=== PATIENT | female | born 1970 | race Asian ===

== ENCOUNTER 2017-08-05 22:37 | Emergency (ER) | payer OTHER ==
[~2017-08-05] VITALS: Ht 154.9 cm; Wt 95.1 kg
[2017-08-05] MEDS ORDERED: LIDOCAINE-MPF 1%, 5ML INFIL ONE (23:00)
[2017-08-05] MEDS ORDERED: ONDANSETRON ODT 4 MG PO ONE (23:00)
[2017-08-05] MEDS ORDERED: ONDANSETRON ODT 4 MG ONE (23:02)
[2017-08-05] MEDS ORDERED: PROMETHAZINE 25 MG/ML, 1ML ONE (23:42)
[2017-08-05 23:46] LABS: BASOPHILS % (AUTO) 0 % (0-1); EOSINOPHILS # (AUTO) 0.01 x10^3/uL (0-0.4); EOSINOPHILS % (AUTO) 0 % (1-7); LYMPHOCYTES % (AUTO) 10 % (22-44); MD NO; MEAN CORPUSCULAR HEMOGLOBIN 21.1 pg (27.0-34.8); MEAN CORPUSCULAR HGB CONC 31.1 g/dL (32.4-35.8); MEAN CORPUSCULAR VOLUME 67.9 fL (80-100); MEAN PLATELET VOLUME 8.8 fL (7.4-10.4); MONOCYTES # (AUTO) 0.34 x10^3/uL (0.2-0.8); MONOCYTES % (AUTO) 3 % (2-9); NEUTROPHILS # (AUTO) 8.51 x10^3/uL (1.8-6.8); NEUTROPHILS % (AUTO) 86 % (42-75); PLATELET COUNT 321 x10^3/uL (130-400); RED BLOOD COUNT 4.51 x10^6/uL (3.82-5.3); RED CELL DISTRIBUTION WIDTH 16.9 % (9.6-15.2)
[2017-08-05 23:56] LABS: ALBUMIN 3.7 g/dL (3.4-5.0); ANION GAP 8 mmol/L (5-15); CALCIUM 8.5 mg/dL (8.5-10.1); CHLORIDE 108 mmol/L (98-107)
[2017-08-06] MEDS ORDERED: PROMETHAZINE 25 MG/ML, 1ML IM ONE
[2017-08-06 00:03] LABS: ALANINE AMINOTRANSFERASE 21 U/L (12-78); ALKALINE PHOSPHATASE 79 U/L (45-117); BILIRUBIN,TOTAL 0.6 mg/dL (0.2-1.0); CREATININE 0.71 mg/dL (0.55-1.02)
[2017-08-06 00:26] LABS: MICROSCOPIC AUTO
[2017-08-06 00:38] LABS: CULTURE INDICATED? NO
[2017-08-06 00:53] VITALS: BP 169/76
[2017-08-06] MEDS ORDERED: METF500T4 PO (00:56)
== END 2017-08-06 01:42 | disposition home or self-care (01) ==
LOC: ED 23:46
DX: K29.00 Acute gastritis without bleeding (principal); K31.84 Gastroparesis; E11.65 Type 2 diabetes mellitus with hyperglycemia
CPT/HCPCS: 36415; 76700; 80053; 81001; 83690; 84703; 85025; 96372; 99285; J2550; Q0162